=== PATIENT | female | born 2000 | race Caucasian/White ===

== ENCOUNTER 2023-09-21 23:38 | Emergency (ER) | payer SELFPAY ==
[2023-09-22] MEDS ORDERED: Famotidine 20 MG TAB ONE (00:15)
[2023-09-22] MEDS ORDERED: Lidocaine 2% Viscous Solution 10 ML, Aluminum & Magnesium Hydroxide 30 ML SSW SCH (00:30)
== END 2023-09-22 00:28 | disposition home or self-care (01) ==
LOC: CSHERS 23:38
DX: O99.611 Diseases of the digestive system complicating pregnancy, first trimester (principal); K29.70 Gastritis, unspecified, without bleeding; Z3A.01 Less than 8 weeks gestation of pregnancy
CPT/HCPCS: 99283